=== PATIENT | male | born 1960 | race Hispanic/Latino ===

== ENCOUNTER 2017-06-19 15:12 | Outpatient (CLI) | payer BC | END 2017-06-19 15:13 | disposition home or self-care (01) | LOC: BICRAD 15:12 | PROVIDERS: ATTEND Nurse Practitioner Family | DX: L98.9 Disorder of the skin and subcutaneous tissue, unspecified (principal) ==

== ENCOUNTER 2017-06-27 16:25 | Outpatient (CLI) | payer BC ==
--- NOTE | 2017-06-28 14:00 | MRI ---
RIGHT HAND MRI WITH AND WITHOUT IV CONTRAST: HISTORY: A 57-year-old male with a history of a palpable knot on the palm of the right hand. This area was ma rked. This has been there for four to five months and is sometimes painful. TECHNIQUE: Initial noncontrast images were performed on 06/27/2017 and follow-up post contrast images were perfo rmed on 06/28/2017. FINDINGS: There is a marker placed on the palmar aspect of the hand to denote the palpable finding. There is n o evidence for an abnormal fluid collection. There is no evidence for a solid mass or cyst noted radha t would account for another palpable finding. There are some degenerative changes of the hand and wr ist, including some intraosseous cystic changes within the lunate, in particular, but also in the oth er carpal bones. The visualized flexor tendons are intact. No evidence of mass within the carpal tu nnel. 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 No evidence for an abnormal fluid collection or solid enhancing mass or cystic mass in the palmar aspect of the hand, accounting for the palpable finding. The carpal tunnel region appears unremarkable. The volar tendons appear intact. This is reviewed in consensus with Dr. Pace. POS: [facility]
== END 2017-06-27 16:26 | disposition home or self-care (01) ==
LOC: MRI 16:25
PROVIDERS: ATTEND Nurse Practitioner Family
DX: M25.541 Pain in joints of right hand (principal); M19.041 Primary osteoarthritis, right hand

== ENCOUNTER 2019-03-11 12:12 | Outpatient (CLI) | payer OTHER | END 2019-03-11 12:13 | disposition home or self-care (01) | LOC: ULT 12:12 | PROVIDERS: ATTEND Family Medicine | DX: R01.1 Cardiac murmur, unspecified (principal); I08.3 Combined rheumatic disorders of mitral, aortic and tricuspid valves | CPT/HCPCS: 93306 ==

== ENCOUNTER 2020-01-27 07:18 | Outpatient (CLI) | payer OTHER ==
--- NOTE | 2020-01-27 08:55 | CT ---
CT ABDOMEN AND PELVIS WITH AND WITHOUT IV CONTRAST 01/27/2020 CLINICAL INFORMATION: Hematuria. COMPARISON: None. Technique: Multiple contiguous axial CT images are obtained through the abdomen and pelvis with IV contrast. Cor onal reformatted images are provided. FINDINGS: Lower Chest: Linear scarring versus atelectasis is present at the right lung base. A 7 mm noncalcifie d pulmonary nodule is seen at the posterolateral left lung base. Vessels: Abdominal aorta is normal in caliber. Minimal vascular calcifications are seen in the distal right common iliac artery. Abdomen: Portal vein:Patent Gallbladder: There are a few scattered gas density seen in the gallbladder lumen compatible with gall bladder calculi. Liver: within normal limits. Spleen: within normal limits. Pancreas: within normal limits. Adrenals: within normal limits. Kidneys and ureters: A 11 mm slightly increased density lesion is seen within the superior pole left kidney which does not demonstrate enhancement after the administration of contrast and is likely related to a hyperdense Bosniak type II renal cyst. A 10 mm hypodense fluid attenuation cyst is seen in the inferior pole left kidney. No enhancing renal mass is identified. No renal or ureteral calculi are seen bilaterally, and there is no hydronephrosis. Bowel: Normal caliber. Appendix: The appendix is visualized and normal in caliber. Peritoneum: No ascites or free air; no fluid collection. Mesentery and Retroperitoneum: No enlarged mesenteric or retroperitoneal lymph nodes. Abdominal Wall: Tiny fat-containing umbilical hernia. Pelvis: Reproductive Organs: No pelvic masses. Bladder: within normal limits. Bones: No suspicious lytic or sclerotic osseous lesions. IMPRESSION: 1. Left lower lobe pulmonary nodule measuring 7 mm. Follow-up CT thorax in 6 months is recommended. I f the patient is high risk for neoplasm, follow-up CT thorax in 3 months is recommended. 2. Cholelithiasis. 3. Small left renal cyst in addition to small hyperdense Bosniak type II left renal cyst. No enhancin g renal mass is seen. 4. No renal or ureteral calculi are seen bilaterally.
[2020-01-27] MEDS ORDERED: Iopamidol-370 76% 500 ML 1 ML ONE (15:09)
== END 2020-01-27 07:19 | disposition home or self-care (01) ==
LOC: BICCT 07:18
PROVIDERS: ATTEND Physician Assistant
DX: R31.9 Hematuria, unspecified (principal); R39.198 Other difficulties with micturition; R91.8 Other nonspecific abnormal finding of lung field; K80.20 Calculus of gallbladder without cholecystitis without obstruction; N28.1 Cyst of kidney, acquired
CPT/HCPCS: 74178; Q9967

== ENCOUNTER 2020-09-02 16:27 | Outpatient (CLI) | payer BC | END 2020-09-02 16:28 | disposition home or self-care (01) | LOC: BICRAD 16:27 | PROVIDERS: ATTEND Family Medicine | DX: M54.5 Low back pain (principal); M47.816 Spondylosis without myelopathy or radiculopathy, lumbar region; M43.16 Spondylolisthesis, lumbar region; M47.817 Spondylosis without myelopathy or radiculopathy, lumbosacral region; M47.818 Spondylosis without myelopathy or radiculopathy, sacral and sacrococcygeal region | CPT/HCPCS: 72100 ==

== ENCOUNTER 2021-04-14 09:59 | Outpatient (CLI) | payer BC | END 2021-04-14 10:00 | disposition home or self-care (01) | LOC: BICULT 09:59 | PROVIDERS: ATTEND Family Medicine | DX: R10.11 Right upper quadrant pain (principal); K91.873 Postprocedural seroma of a digestive system organ or structure following other procedure; Z90.49 Acquired absence of other specified parts of digestive tract | CPT/HCPCS: 76700 ==